=== PATIENT | male | born 1990 | race Two or more races ===

== ENCOUNTER 2023-05-20 23:02 | Emergency (ER) | payer SELFPAY ==
[~2023-05-20] VITALS: Ht 175.3 cm; Wt 80.0 kg
[2023-05-20] MEDS ORDERED: FLUORESCEIN SODIUM 1 MG STRIP ONE (23:17)
[2023-05-21] MEDS ORDERED: ACET-2080 PO (00:33)
[2023-05-21] MEDS: GENTAMICIN SULFATE 0.3% OPHTHALMIC SOLUTION 5 ML OD ONE (00:36)
[2023-05-21] MEDS: ACETAMINOPHEN/CODEINE 300-30 MG TABLET PO ONE (00:36)
[2023-05-21 01:01] VITALS: BP 129/77; PULSE 70; RESP 16; TEMP 97.3
== END 2023-05-21 01:29 | disposition home or self-care (01) ==
LOC: EMS 23:05
DX: S00.11XA Contusion of right eyelid and periocular area, initial encounter (principal); X58.XXXA Exposure to other specified factors, initial encounter; Y93.89 Activity, other specified; Y92.89 Other specified places as the place of occurrence of the external cause; Y99.8 Other external cause status
CPT/HCPCS: 99282; Z7502; Z7610